=== PATIENT | female | born 1975 | race Caucasian/White ===

== ENCOUNTER 2018-12-25 16:59 | Emergency (ER) | payer OTHER ==
[2018-12-25] MEDS ORDERED: fentaNYL 100 MCG/2 ML INJ IVP ONE (17:05)
[2018-12-25] MEDS ORDERED: fentaNYL 100 MCG/2 ML INJ ONE (17:06)
[2018-12-25] MEDS ORDERED: ONDANSETRON 4 MG/2 ML VIAL ONE (17:07)
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
[2018-12-25] MEDS ORDERED: IOPAMIDOL (ISOVUE-300) 100 ML BTL ONE (17:17)
[2018-12-25 17:37] LABS: INR 0.93 (0.83-1.16); PROTIME(PATIENT) 12.1 SEC (12.0-15.0)
[2018-12-25 17:42] LABS: PLATELET COUNT 246 10^3/uL (150-400)
[2018-12-25] MEDS ORDERED: KETOROLAC 30 MG/1 ML SDV IVP ONE (18:17)
[2018-12-25] MEDS ORDERED: KETOROLAC 30 MG/1 ML SDV ONE (18:18)
[2018-12-25 19:37] VITALS: BP 119/77
== END 2018-12-25 19:52 | disposition home or self-care (01) ==
DX: S06.9X9A Unspecified intracranial injury with loss of consciousness of unspecified duration, initial encounter (principal); M54.2 Cervicalgia; M25.522 Pain in left elbow; E04.9 Nontoxic goiter, unspecified; V04.00XA Pedestrian on foot injured in collision with heavy transport vehicle or bus in nontraffic accident, initial encounter; Y92.410 Unspecified street and highway as the place of occurrence of the external cause; Y93.89 Activity, other specified
CPT/HCPCS: 82435-PO; 82565-PO; 82947-PO; 84132-PO; 84295-PO; 84520-PO; 85014-ER; 96374; G0480; J1885; J2405; J3010; Q9967